=== PATIENT | female | born 1960 | race Caucasian/White ===

== ENCOUNTER 2017-12-27 12:14 | Emergency (ER) | payer OTHER ==
[~2017-12-27] VITALS: Ht 170.2 cm; Wt 81.7 kg
[~2017-12-27 12:14] MED LIST: IBUP600T44 PO; NyQuil; OXYC-57 PO; PRENTAB26 PO
[2017-12-27 12:44] VITALS: TEMP 37; Ht 170.2 cm; Wt 81.7 kg
[2017-12-27] MEDS ORDERED: PROMETHAZINE HCL INJ 25 MG in SODIUM CHLORIDE 0.9% 50ML 50 ML IV STA (13:56)
[2017-12-27] MEDS ORDERED: SODIUM CHLORIDE 0.9% 1000ML 1,000 ML IV STA (13:56)
[2017-12-27] MEDS ORDERED: MoRPHine SULFATE 4 MG/ML 1 ML CARP\\VIAL IV PRN (14:00)
--- NOTE | 2017-12-27 14:12 | EMERGENCY ROOM VISIT NOTE ---
History Report prepared by Calderon: Hermilo Burgess Under the Supervision of: Dr. Eugene Luna D.O. First contact with patient: 13:52 Chief Complaint: HEADACHE Stated Complaint: WORST HEADACHE, EAR PAIN, THROAT PAIN, JAW PAIN History of Present Illness The patient is a 57 year old female who presents to the Emergency Room with complaints of a headache that began recently. She rates her pain a 10/10 in severity. She has a past medical history of a gastric bypass, GERD, and a hysterectomy. Yesterday, the patient's symptoms began with posterior left sided neck pain with some mild nausea. She woke up this morning and went to work as usual. Her neck pain then worsened until she began to experience this headache that she describes as the "worst headache of her life" and that "her head is going to explode." She got home and continued to feel nauseated so she took one of her 's Zofran medications, which mildly helped. She is experiencing this headache through her entire left side of her head, including ear, jaw, and throat. This has never happened to her before. She denies any recent falls or illness. She denies any known drug allergies. She denies any fevers or cough. Source of History: patient Onset: recently Position: head Symptom Intensity: 10/10 Quality: ache Timing: constant Associated Symptoms: + neck pain (posterior left), No fevers, No cough Note: Her headache radiates into her left jaw, ear, and throat. Review of Systems See HPI for pertinent positives & negatives. A total of 10 systems reviewed and were otherwise negative. Past Medical & Surgical Medical Problems: (1) GERD (gastroesophageal reflux disease) Surgical Problems: (1) History of gastric bypass (2) History of hysterectomy Family History Diabetes mellitus Heart disease Social History Smoking Status: Never Smoker Smokeless Tobacco Use: No Alcohol Use: none Marital Status: Housing Status: lives with family Occupation Status: employed Current/Historical Medications Scheduled Calcium Carbonate-Vitamin D (Calcium + D), 1 TAB PO DAILY Levothyroxine Sodium (Synthroid), 50 MCG PO DAILY Multivitamin (Multivitamin), 1 TAB PO DAILY Ondasetron Odt (Zofran Odt), 4 MG SL Q6H Venlafaxine Hcl (Effexor), 75 MG PO QAM Venlafaxine Hcl (Effexor), 37.5 MG PO QPM Scheduled PRN Acetamin/Butalbital/Caffeine (Fioricet), 1 TAB PO Q4 PRN for Pain Allergies Coded Allergies: Latex1 -Allergic Contact Dermititis (Unverified Allergy, Unknown, CONTACT DERMATITIS, 12/27/17) Physical Exam Vital Signs Date Time Temp Pulse Resp B/P (MAP) Pulse Ox O2 Delivery O2 Flow Rate FiO2 12/27/17 16:53 68 14 144/83 95 12/27/17 16:31 144/83 12/27/17 16:30 67 13 96 Room Air 12/27/17 16:01 137/86 12/27/17 16:00 62 13 95 Room Air 12/27/17 15:31 138/90 12/27/17 15:30 65 12 96 12/27/17 15:01 141/88 12/27/17 15:00 65 16 96 12/27/17 14:31 74 133/84 99 Room Air 12/27/17 14:26 68 12/27/17 12:44 37.0 84 18 151/92 98 Room Air Physical Exam GENERAL: Patient is awake, alert, and in no acute distress. Patient is resting comfortably and showing no signs of anxiety EYES: The conjunctivae are clear. The pupils are round and reactive. EARS, NOSE, MOUTH AND THROAT: The nose is without any evidence of any deformity. Mucous membranes are moist tongue is midline NECK: The neck is nontender and supple. RESPIRATORY: Normal respiratory effort is noted there is no evidence of wheezing rhonchi or rales CARDIOVASCULAR: Regular rate and rhythm noted there no murmurs rubs or gallops normal S1 normal S2 GASTROINTESTINAL: The abdomen is soft. Bowel sounds are present in all quadrants. Abdomen is nontender PELVIS: The Pelvis is stable. No tenderness to palpation is noted. BACK: No midline tenderness or or step-off noted range of motion in flexion extension as well as rotation no signs of muscle spasm noted MUSCULOSKELETAL/EXTREMITIES: There is no evidence of gross deformity full range of motion is noted in the hips and shoulders SKIN: There is no obvious evidence of any rash. There are no petechiae, pallor or cyanosis noted. NEUROLOGIC: Patient is awake alert and oriented x3 strength is symmetric patellar reflexes are 2+ bilaterally Medical Decision & Procedures ER Provider Diagnostic Interpretation: Radiology results as stated below per my review and radiologist interpretation: HEAD WITHOUT CONTRAST (CT) CLINICAL HISTORY: 57 years-old Female with left sided sagastume. Acute headache TECHNIQUE: Multiple axial CT images of the head were obtained without contrast. A dose lowering technique was utilized adhering to the principles of ALARA. CT DOSE: 614.27 mGy.cm COMPARISON: None. FINDINGS: No acute intracranial hemorrhage, midline shift, intracranial mass, hydrocephalus, territorial ischemia or abnormal extra-axial collection. Focal 5 mm area of low-attenuation involving the left lentiform nucleus suggests remote lacunar infarction or prominent perivascular space. The calvarium is intact. The mastoid air cells, and middle ear cavities are clear. Mild mucosal thickening of the ethmoid air cells. Orbits are symmetric. Soft tissues are unremarkable. IMPRESSION: No acute intracranial abnormality. The above report was generated using voice recognition software. It may contain grammatical, syntax or spelling errors. Electronically signed by: Zachery Lehman M.D. 12/27/2017 2:23 PM Dictated Date/Time: 12/27/2017 2:20 PM Laboratory Results 12/27/17 14:30 Red Blood Count 4.59, Mean Corpuscular Volume 84.3, Mean Corpuscular Hemoglobin 28.3, Mean Corpuscular Hemoglobin Concent 33.6, Mean Platelet Volume 9.8, Neutrophils (%) (Auto) 75.4, Lymphocytes (%) (Auto) 19.9, Monocytes (%) (Auto) 3.5, Eosinophils (%) (Auto) 0.3, Basophils (%) (Auto) 0.6, Neutrophils # (Auto) 5.84, Lymphocytes # (Auto) 1.54, Monocytes # (Auto) 0.27, Eosinophils # (Auto) 0.02, Basophils # (Auto) 0.05 12/27/17 14:30 Test 12/27/17 14:30 12/27/17 14:45 12/27/17 14:50 White Blood Count 7.74 K/uL (4.8-10.8) Red Blood Count 4.59 M/uL (4.2-5.4) Hemoglobin 13.0 g/dL (12.0-16.0) Hematocrit 38.7 % (37-47) Mean Corpuscular Volume 84.3 fL (80-100) Mean Corpuscular Hemoglobin 28.3 pg (25-34) Mean Corpuscular Hemoglobin Concent 33.6 g/dl (32-36) Platelet Count 240 K/uL (130-400) Mean Platelet Volume 9.8 fL (7.4-10.4) Neutrophils (%) (Auto) 75.4 % Lymphocytes (%) (Auto) 19.9 % Monocytes (%) (Auto) 3.5 % Eosinophils (%) (Auto) 0.3 % Basophils (%) (Auto) 0.6 % Neutrophils # (Auto) 5.84 K/uL (1.4-6.5) Lymphocytes # (Auto) 1.54 K/uL (1.2-3.4) Monocytes # (Auto) 0.27 K/uL (0.11-0.59) Eosinophils # (Auto) 0.02 K/uL (0-0.5) Basophils # (Auto) 0.05 K/uL (0-0.2) RDW Standard Deviation 42.9 fL (36.4-46.3) RDW Coefficient of Variation 14.0 % (11.5-14.5) Immature Granulocyte % (Auto) 0.3 % Immature Granulocyte # (Auto) 0.02 K/uL (0.00-0.02) Erythrocyte Sedimentation Rate 21 mm/hr (0-21) Prothrombin Time 10.7 SECONDS (9.0-12.0) Prothromb Time International Ratio 1.0 (0.9-1.1) Activated Partial Thromboplast Time 27.4 SECONDS (21.0-31.0) Partial Thromboplastin Ratio 1.1 Anion Gap 8.0 mmol/L (3-11) Est Creatinine Clear Calc Drug Dose 95.9 ml/min Estimated GFR () 108.5 Estimated GFR (Non- 93.6 BUN/Creatinine Ratio 14.1 (10-20) Calcium Level 9.3 mg/dl (8.5-10.1) Magnesium Level 2.4 mg/dl (1.8-2.4) Total Bilirubin 0.5 mg/dl (0.2-1) Direct Bilirubin < 0.1 mg/dl (0-0.2) Aspartate Amino Transf (AST/SGOT) 13 U/L (15-37) Alanine Aminotransferase (ALT/SGPT) 25 U/L (12-78) Alkaline Phosphatase 127 U/L (45-117) C-Reactive Protein < 0.29 mg/dl (0-0.29) Total Protein 7.9 gm/dl (6.4-8.2) Albumin 4.0 gm/dl (3.4-5.0) Lipase 165 U/L (73-393) CSF Color COLORLESS CSF Appearance CLEAR CSF WBC 2 /uL (0-5) CSF RBC 0 /uL (0) CSF Xanthrochromic NO XANTHOCHROMIA CSF Cell Count Tube # 4 CSF Chemistry Tube # 2 CSF Glucose 54 mg/dl (40-70) CSF Total Protein 39.8 mg/dl (15.0-45.0) Influenza Type A Antigen Neg for Influ A (NEG) Influenza Type B Antigen Neg for Influ B (NEG) Laboratory results per my review. Medications Administered Medications (Trade) Dose Ordered Sig/Thomas Route Start Time Stop Time Status Last Admin Dose Admin Sodium Chloride 1,000 ml @ 999 mls/hr Q1H1M STAT IV 12/27/17 13:56 12/27/17 14:56 DC 12/27/17 14:26 999 MLS/HR Morphine Sulfate (MoRPHine SULFATE INJ) 4 mg Q15M PRN IV 12/27/17 14:00 12/27/17 17:09 DC 12/27/17 14:26 4 MG Promethazine HCl 25 mg/Sodium Chloride 51 ml @ 204 mls/hr NOW STAT IV 12/27/17 13:56 12/27/17 14:10 DC 12/27/17 14:26 204 MLS/HR Procedure Lumbar Puncture Indication: Headache. Verbal consent was obtained after the risks and benefits were explained, including but not limited to headache, bleeding/clotting, scarring, infection, pain, and bone/joint/nerve damage. At this time, the risks of the procedure are less than the risks of NOT performing the procedure. A time out was taken and the correct patient and site identified. The patient was placed in the sitting position and the back was prepped with betadine and draped in the standard fashion. The L3 intervertebral space was identified, anesthetized locally with 1 % lidocaine without epinephrine, and the spinal needle was inserted through the skin with the bevel parallel to the dural fibers. The needle was carefully advanced into the lumbar cistern and 4 tubes of clear CSF was obtained. The stylet was replaced and the needle was removed. A bandaid was placed and the patient was placed in the supine position. The patient tolerated the procedure well and there were no complications. ED Course 1352: The patient was evaluated in room C11. A complete history and physical examination were performed. 1356: Ordered Promethazine HCl 25 mg/Sodium Chloride 51 ml @ 204 mls/hr IV, NSS 1,000 ml @ 999 mls/hr IV 1400: Ordered Morphine Sulfate 4 mg IV 1430: I performed a lumbar puncture procedure at this time. Please see the procedure note for more information. Medical Decision Differential diagnosis: Etiologies such as migraine headache, meningitis, sinusitis, CO exposure, ICH, SAH, infection, tumor, headache, sinus thrombosis, arterial dissection, as well as others were entertained. Nursing notes reviewed. The patient is a 57-year-old female who presented to the emergency department with a very significant left-sided headache. The patient did not not have an acute onset of the headache but it became acutely worse today. The patient did not have any focal neurologic deficits or meningismus. The patient was treated with IV fluids IV pain medicine and IV antiemetics. On subsequent reevaluation she was feeling much better. I discussed the patient's laboratory and radiographic studies with her. I also discussed the limitations of the CT of the head. For this reason a lumbar puncture was obtained. It did not appear to be consistent with meningitis or subarachnoid hemorrhage. The patient was encouraged to rest and avoid any strenuous activity. She was also encouraged to call her primary care physician to schedule follow-up appointment. Otherwise she was encouraged to return the emergency department immediately if symptoms change worsen or the need arises. Medication Reconcilliation Current Medication List: was personally reviewed by me Blood Pressure Screening Patient's blood pressure: Elevated blood pressure Blood pressure disposition: Elevated BP felt to be situational Impression Primary Impression: Left-sided headache Scribe Attestation The scribe's documentation has been prepared under my direction and personally reviewed by me in its entirety. I confirm that the note above accurately reflects all work, treatment, procedures, and medical decision making performed by me. Departure Information Prescriptions Ondasetron Odt (ZOFRAN ODT) 4 Mg Tab 4 MG SL Q6H for Nausea, #15 TAB Prov: Eugene Luna, DO 12/27/17 Acetamin/Butalbital/Caffeine (FIORICET) 1 Ea Tab 1 TAB PO Q4 Y for Pain, #20 TAB Prov: Eugene Luna, 12/27/17 Referrals Sara Yoo M.D. (PCP) Patient Instructions My [facility]
--- NOTE | 2017-12-27 14:25 | DIAGNOSTIC IMAGING REPORT ---
HEAD WITHOUT CONTRAST (CT) CLINICAL HISTORY: 57 years-old Female with left sided sagastume. Acute headache TECHNIQUE: Multiple axial CT images of the head were obtained without contrast. A dose lowering technique was utilized adhering to the principles of ALARA. CT DOSE: 614.27 mGy.cm COMPARISON: None. FINDINGS: No acute intracranial hemorrhage, midline shift, intracranial mass, hydrocephalus, territorial ischemia or abnormal extra-axial collection. Focal 5 mm area of low-attenuation involving the left lentiform nucleus suggests remote lacunar infarction or prominent perivascular space. The calvarium is intact. The mastoid air cells, and middle ear cavities are clear. Mild mucosal thickening of the ethmoid air cells. Orbits are symmetric. Soft tissues are unremarkable. IMPRESSION: No acute intracranial abnormality. The above report was generated using voice recognition software. It may contain grammatical, syntax or spelling errors. Electronically signed by: Zachery Lehman M.D. 12/27/2017 2:23 PM Dictated Date/Time: 12/27/2017 2:20 PM
[2017-12-27 14:42] LABS: BASO % 0.6 %; BASO ABS # 0.05 K/uL (0-0.2); EOS % 0.3 %; EOS ABS # 0.02 K/uL (0-0.5); HEMATOCRIT 38.7 % (37-47); IG# 0.02 K/uL (0.00-0.02); LYMPH % 19.9 %; LYMPH ABS # 1.54 K/uL (1.2-3.4); MEAN CELL VOLUME 84.3 fL (80-100); MEAN CORPUSCULAR HEMOGLOBIN 28.3 pg (25-34); MEAN CORPUSCULAR HGB CONC 33.6 g/dl (32-36); MEAN PLATELET VOLUME 9.8 fL (7.4-10.4); MONO % 3.5 %; MONO ABS # 0.27 K/uL (0.11-0.59); NEUT % 75.4 %; NEUT ABS # 5.84 K/uL (1.4-6.5); PLATELET COUNT 240 K/uL (130-400); RED CELL DISTRIBUTION WIDTH SD 42.9 fL (36.4-46.3); WHITE BLOOD COUNT 7.74 K/uL (4.8-10.8)
[2017-12-27 14:52] LABS: PTT PATIENT 27.4 SECONDS (21.0-31.0)
[2017-12-27 15:05] LABS: CALCIUM 9.3 mg/dl (8.5-10.1); POTASSIUM 3.2 mmol/L (3.5-5.1); SODIUM 140 mmol/L (136-145)
[2017-12-27 15:08] LABS: ALT/SGPT 25 U/L (12-78); AST/SGOT 13 U/L (15-37); BLOOD UREA NITROGEN 10 mg/dl (7-18); CARBON DIOXIDE 30 mmol/L (21-32); CREATININE 0.72 mg/dl (0.60-1.20); GLUCOSE 89 mg/dl (70-99); LIPASE 165 U/L (73-393)
[2017-12-27 15:11] LABS: ALKALINE PHOSPHATASE 127 U/L (45-117); TOTAL PROTEIN 7.9 gm/dl (6.4-8.2)
[2017-12-27] MEDS ORDERED: FAMO1TAB47 PO (15:31)
[2017-12-27] MEDS ORDERED: LEVO50TA PO (15:31)
[2017-12-27] MEDS ORDERED: MULT-506 PO (15:31)
[2017-12-27] MEDS ORDERED: CALC600T9 PO (15:31)
[2017-12-27] MEDS ORDERED: EFF/375 PO ×2 (15:31)
[2017-12-27 15:33] LABS: CSF GLUCOSE 54 mg/dl (40-70); CSF TOTAL PROTEIN 39.8 mg/dl (15.0-45.0)
[2017-12-27 15:35] LABS: INFLUENZA B ANTIGEN Neg for Influ B (NEG)
[2017-12-27] MEDS ORDERED: FRCT/ PO (15:56)
[2017-12-27] MEDS ORDERED: ONDA4TAB10 SL (15:56)
[2017-12-27 16:53] VITALS: BP 144/83; PULSE 68; O2SAT 95
== END 2017-12-27 16:48 | disposition home or self-care (01) ==
LOC: C.EDB 12:16 → C.EDC 16:48
DX: R51 Headache (principal); M54.2 Cervicalgia; R11.0 Nausea; Z98.84 Bariatric surgery status; Z90.710 Acquired absence of both cervix and uterus

== ENCOUNTER → 2018-05-24 | Outpatient (CLI) | payer OTHER ==
[~2018-05-24] MED LIST changes: +CALC600T9 PO; +EFF/375 PO; +FRCT/ PO; -IBUP600T44 PO; +LEVO50TA PO; +MULT-506 PO; -NyQuil; +ONDA4TAB10 SL; -OXYC-57 PO; -PRENTAB26 PO
--- NOTE | 2018-05-24 16:19 | MAMMOGRAPHY REPORT ---
BILATERAL DIGITAL SCREENING MAMMOGRAM TOMOSYNTHESIS WITH CAD: 05/24/2018 CLINICAL HISTORY: Routine screening. Patient has no complaints. TECHNIQUE: The study was acquired using full field digital technology and interpreted from soft copy. Breast tomosynthesis in addition to standard 2D mammography was performed. Current study was also ev aluated with a Computer Aided Detection (CAD) system. COMPARISON: Comparison is made to exams dated: 03/18/2016 mammogram, 02/22/2015 mammogram, 01/18/2013 m ammogram, 01/07/2012 mammogram, 11/17/2010 mammogram, and 07/24/2010 mammogram - [facility] nter. BREAST COMPOSITION: The tissue of both breasts is heterogeneously dense, which may obscure small mass es. FINDINGS: There is decreased subcutaneous fat and increased density of the breasts, likely due to int erval weight loss, comparing to the most recent available 2016 mammograms. There are stable punctate calcifications bilaterally. No suspicious mass, architectural distortion or cluster of microcalcific ations is seen. IMPRESSION: ACR BI-RADS CATEGORY 1: NEGATIVE There is no mammographic evidence of malignancy. A 1 year screening mammogram is recommended.( 019) The patient will receive written notification of the results. Some breast cancers are not detected with mammography. A negative mammographic report should not kar y biopsy if a clinically suggestive mass is present. Kaia Carmona M.D. ay/:05/24/2018 15:44:10 End Polisher: RT Sheryl(Elmo)(M), [facility] letter sent: Normal 1/2 BI-RADS Code: ACR BI-RADS Category 1: Negative
== END | disposition home or self-care (01) ==
LOC: C.MAMM 14:44
PROVIDERS: ATTEND Family Medicine
DX: Z12.31 Encounter for screening mammogram for malignant neoplasm of breast (principal)